=== PATIENT | male | born 1975 | race Caucasian/White ===

== ENCOUNTER 2017-02-10 08:22 | Emergency (ER) | payer OTHER ==
[2017-02-10 08:31] VITALS: BP 134/84; PULSE 77; TEMP 98; BMI 33.6
[2017-02-10] MEDS ORDERED: IBUPROFEN 600 MG TABLET (FP) PO ONE ×2 (08:55→09:01)
[2017-02-10] MEDS ORDERED: IBUPROFEN 400 MG TABLET (FP) PO ONE (09:00)
--- NOTE | 2017-02-10 09:20 | PDOC ---
History of Present Illness - General Chief Complaint: Pain Stated Complaint: PAIN/ RT LEG, KNEE, GROIN Time Seen by Provider: 02/10/17 08:40 History Source: Patient Exam Limitations: No Limitations - History of Present Illness Initial Comments: 02/10/17 09:50 41-year-old [place] [employer] presents to the emergency room with complaints of right knee pain and left groin pain after he was involved in a running pursuit while on duty today . Patient states he fell between an opening causing him to have his right leg going to the opening straining his lower body. Patient states was able to be pulled out immediately after falling by another officer and was able to ambulate at the scene. Patient states right knee reconstruction including a patellar fracture and ligament repair one year ago. Patient states when he ambulates presently he has pain to the right knee and to the left groin that has no change in gait. Patient states no back pain neck pain, abdominal pain, or radiation of pain. Timing/Duration: 1-3 hours Severity: mild Associated Symptoms: reports: denies symptoms Past History - Past Medical History Allergies/Adverse Reactions: Allergies Allergy/AdvReac Type Severity Reaction Status Date / Time No Known Allergies Allergy Verified 02/10/17 08:29 Home Medications: Ambulatory Orders Zolpidem Tartrate [Ambien] 10 mg PO HS 12/17/12 Oxycodone HCl/Acetaminophen [Percocet 5-325 mg Tablet] 1 - 2 tab PO Q6H PRN #12 tab 02/02/14 - Surgical History Orthopedic Surgery: Yes (right knee) - Psycho/Social/Smoking Cessation Hx Anxiety: No Suicidal Ideation: No Smoking Status: No Smoking History: Never smoked Number of Cigarettes Smoked Daily: 0 Information on smoking cessation initiated: No Hx Alcohol Use: No Substance Use Type: None Hx Substance Use Treatment: No Patient Lives Alone: No Lives with/in: spouse/SO Review of Systems - Review of Systems Able to Perform ROS?: Yes Constitutional: No: Symptoms Reported Musculoskeletal: Yes: Joint Pain, Muscle Pain Integumentary: No: Symptoms Reported Neurological: No: Symptoms reported *Physical Exam - Vital Signs Last Vital Signs Temp Pulse Resp BP Pulse Ox 98 F 77 18 134/84 98 02/10/17 08:27 02/10/17 08:27 02/10/17 08:27 02/10/17 08:27 02/10/17 08:27 - Physical Exam General Appearance: Yes: Nourished, Appropriately Dressed. No: Apparent Distress Neck: negative: Tender, Decreased range of motion Respiratory/Chest: negative: Chest Tender Gastrointestinal/Abdominal: negative: Tenderness Musculoskeletal: negative: Vertebral Tenderness Extremity: positive: Normal Capillary Refill, Normal Inspection (no crepitus. No deformity), Normal Range of Motion, Tender (to the medial aspect of right patella over the meniscus. noted discomfort to the proximal aspect of inguinal muscle) Integumentary: positive: Normal Color, Warm, Moist Neurologic: positive: Motor Strength 5/5 (able to perform knee to chest and straight leg raise. 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 Patient on exam had tenderness over the medial aspect of right patella over the meniscus but due to patient's recent history and surgical repair patient will be ordered for an x-ray to look at hardware and bone structures patient ordered for Motrin here in the ER secondary to inguinal muscle strain. If x-rays negative patient will be given 48 hours of rest, recommendations to take Motrin for discomfort and inflammation and apply ice to the affected areas patient also will be recommended to follow-up with [email or web address] if symptoms continue. 02/10/17 09:45 X-ray negative. Patient given instructions listed above. *DC/Admit/Observation/Transfer Diagnosis at time of Disposition: Contusion of right knee, initial encounter Qualifiers: Encounter type: initial encounter Qualified Code(s): S80.01XA - Contusion of right knee, initial encounter Strain of left inguinal muscle Qualifiers: Encounter type: initial encounter Qualified Code(s): S39.013A - Strain of muscle, fascia and tendon of pelvis, initial encounter - Referrals Referrals: Jose Perdomo [Primary Care Provider] - - Patient Instructions Printed Discharge Instructions: DI for Groin Strain, DI for Knee Pain Additional Instructions: Please apply ice to right knee and rest x 48 hours. Please apply ice x 72 hrs to left groin then heat thereafter. Take 600mg of motrin every 8 hours for discomfort and inflammation. If pain continues greater than 72 hours please follow-up with employee health as you may need further workup and diagnostics. - Post Discharge Activity Work/School Note: Back to Work
== END 2017-02-10 09:25 | disposition home or self-care (01) ==
LOC: JER 08:22
DX: S80.01XA Contusion of right knee, initial encounter (principal); S39.011A Strain of muscle, fascia and tendon of abdomen, initial encounter; W17.89XA Other fall from one level to another, initial encounter; Y93.02 Activity, running; Y92.89 Other specified places as the place of occurrence of the external cause; Y99.0 Civilian activity done for income or pay
CPT/HCPCS: 73562-TC-RT; 99282-25